=== PATIENT | male | born 1970 | race African-American/Black ===

== ENCOUNTER 2022-04-02 18:01 | Emergency (ER) | payer OTHER ==
[~2022-04-02] VITALS: Ht 177.8 cm; Wt 100.0 kg
[2022-04-02] MEDS ORDERED: CEFAZOLIN 1000MG PREMIX 50 ML IV ONE (20:15)
[2022-04-02] MEDS ORDERED: MORPHINE SULFATE 2 MG/ML CPJ (NOT FOR IM USE) IV ONE (20:15)
[2022-04-02] MEDS ORDERED: TETANUS, DIPHTHERIA, PERTUSSIS VAC/PF 0.5ML (>10YR OLD) IM ONE (20:15)
[2022-04-02 21:03] LABS: BASOPHILS % 0.1 % (0.0-2.0); EOSINOPHILS % 0.7 % (0.0-5.0); HEMATOCRIT. 44.5 % (42.0-52.0); HEMOGLOBIN. 15.7 g/dL (14.0-18.0); LYMPHOCYTES % 13.6 % (20.0-50.0); MEAN CORPUSCULAR VOLUME 96.6 fL (80.0-94.0); MEAN PLATELET VOLUME 7.9 fl (7.4-10.4); MONOCYTES % 6.2 % (2.0-8.0); NEUTROPHILS % 79.4 % (40.0-76.0); PLATELET 272 x1000/uL (130-400); RED BLOOD CELL COUNT 4.61 mill/uL (4.7-6.1); RED CELL DISTRIBUTION WIDTH 13.4 % (11.6-14.6)
[2022-04-02 21:05] LABS: CHLORIDE 107 mEq/L (98-107)
[2022-04-03] MEDS ORDERED: MORPHINE SULFATE 4 MG/ML CPJ (NOT FOR IM USE) IV ONE (00:45)
[2022-04-03] MEDS ORDERED: IOHEXOL-300 100 ML BOTTLE ONE (00:54)
[2022-04-03] MEDS ORDERED: LIDOCAINE HCL 1% 20ML VIAL (Pyxis) INJ INFIL ONE (01:30)
[2022-04-03] MEDS ORDERED: LIDOCAINE HCL 1% 10 MG/ML 10ML VIAL INJ NR (01:45)
[2022-04-03] MEDS ORDERED: HYDROMORPHONE HCL/PF 2MG/ML CPJ IV ONE (03:15)
[2022-04-03 09:36] VITALS: BP 120/72
[2022-04-03] MEDS ORDERED: OXYCODONE HCL/ACETAMINOPHEN 5/325MG TABLET PO SCH (09:45)
[2022-04-03] MEDS ORDERED: OXYCODONE HCL/ACETAMINOPHEN 5/325MG TABLET PO ONE (09:45)
== END 2022-04-03 09:48 | disposition short-term general hospital (02) ==
LOC: ER 18:01 → CANBEDREQ 04-03 08:43 → ER 04-03 09:48
DX: M79.604 Pain in right leg (principal); R07.89 Other chest pain
CPT/HCPCS: 12004; 36415; 70450; 71045; 72170; 73552; 73562; 73590; 73610; 73700; 80053; 84484; 85025; 90471; 90715; 96365; 96375; 96376; 99285; J0690; J1170; J2270; J3490; Q9967